=== PATIENT | male | born 1980 | race Caucasian/White ===

== ENCOUNTER 2018-10-10 11:00 | Emergency (ER) | payer OTHER ==
--- NOTE | 2018-10-10 12:46 | EDPHY ---
H & P Time Seen by Provider: 10/10/18 11:29 HPI/ROS: CHIEF COMPLAINT: Chest tightness HISTORY OF PRESENT ILLNESS: Patient is a 38-year-old male who presents emergency department with chest tightness starting at around 10:00 a.m.. The patient states he was in a meeting. He started to feel "fidgety."He then felt mildly diaphoretic and his vision was closing in. He got up and left the meeting. He felt some mild chest tightness. His symptoms have improved at this point. He has no current chest pain. He denies leg pain or swelling. Patient wondered if he was having an anxiety attack. He states he is under significant stress currently. REVIEW OF SYSTEMS: 10 systems were reveiwed and are negative with the exception of the elements mentioned in the history of present illness. Past Medical/Surgical History: Negative Social history: The patient drank wine last evening. He does not smoke. Denies drug use Family history: Hypertension Smoking Status: Never smoked Physical Exam: Vitals noted. Heart rate 119 GENERAL: Anxious appearing, in no acute distress, alert. HEENT: Eyes normal to inspection, normal pharynx, no signs of dehydration. NECK: Normal, supple. RESPIRATORY: Clear to auscultation bilaterally, no rales, rhonchi or wheezing. CVS: Regular rate and rhythm, no rubs, murmurs, or gallops. ABDOMEN: Soft, nontender, nondistended, no organomegaly. BACK: Normal to inspection, no CVA tenderness. SKIN: Normal color, no rash, warm, dry. No pallor. EXTREMITIES: No pedal edema, no calf tenderness, no Homans sign or cords, no joint swelling. NEURO/PSYCH: Alert and oriented, normal mood and affect, normal motor sensory exam. No obvious cranial nerve deficit. Constitutional: Initial Vital Signs Temperature (C) 36.7 C 10/10/18 11:10 Heart Rate 119 H 10/10/18 11:10 Respiratory Rate 18 10/10/18 11:10 Blood Pressure 135/88 H 10/10/18 11:10 O2 Sat (%) 98 10/10/18 11:10 O2 Delivery Mode Room Air Allergies/Adverse Reactions: No Known Allergies Allergy (Unverified 10/10/18 11:10) Home Medications: Medication Instructions Recorded NK [No Known Home Meds] 10/10/18 Medical Decision Making ED Course/Re-evaluation: In the emergency department I discussed possible etiologies with the patient. I answered all his questions. EKG shows mild tachycardia at 103, normal axis, normal intervals]. VPC. There are no ST or T-wave abnormalities. Troponin is negative Differential Diagnosis: My differential includes but is not limited to ACS, acute RI, dissection, aneurysm DVT, anxiety - Data Points Laboratory Results: Laboratory Results 10/10/18 12:30 10/10/18 12:30 10/10/18 10/10/18 10/10/18 12:30 12:30 11:36 WBC 7.68 10^3/uL 10^3/uL (3.80-9.50) RBC 5.18 10^6/uL 10^6/uL (4.40-6.38) Hgb 16.1 g/dL g/dL (13.7-17.5) Hct 46.7 % % (40.0-51.0) MCV 90.2 fL fL (81.5-99.8) MCH 31.1 pg pg (27.9-34.1) MCHC 34.5 g/dL g/dL (32.4-36.7) RDW 12.5 % % (11.5-15.2) Plt Count 188 10^3/uL 10^3/uL (150-400) MPV 10.5 fL fL (8.7-11.7) Neut % (Auto) 77.8 % H % (39.3-74.2) Lymph % (Auto) 12.8 % L % (15.0-45.0) [place] % (Auto) 8.5 % % (4.5-13.0) Eos % (Auto) 0.1 % L % (0.6-7.6) Baso % (Auto) 0.5 % % (0.3-1.7) Nucleat RBC Rel Count 0.0 % % (0.0-0.2) Absolute Neuts (auto) 5.98 10^3/uL 10^3/uL (1.70-6.50) Absolute Lymphs (auto) 0.98 10^3/uL L 10^3/uL (1.00-3.00) Absolute Monos (auto) 0.65 10^3/uL 10^3/uL (0.30-0.80) Absolute Eos (auto) 0.01 10^3/uL L 10^3/uL (0.03-0.40) Absolute Basos (auto) 0.04 10^3/uL 10^3/uL (0.02-0.10) Absolute Nucleated RBC 0.00 10^3/uL 10^3/uL (0-0.01) Immature Gran % 0.3 % % (0.0-1.1) Immature Gran # 0.02 10^3/uL 10^3/uL (0.00-0.10) D-Dimer Sodium 135 mEq/L mEq/L (135-145) Potassium 3.4 mEq/L L mEq/L (3.5-5.2) Chloride 99 mEq/L mEq/L (97-110) Carbon Dioxide 19 mEq/l L mEq/l (22-31) Anion Gap 17 mEq/L H mEq/L (6-14) BUN 8 mg/dL mg/dL (7-23) Creatinine 0.8 mg/dL mg/dL (0.7-1.3) Estimated GFR > 60 Glucose 152 mg/dL H mg/dL (70-100) Calcium 9.3 mg/dL mg/dL (8.5-10.4) POC Troponin I 0.00 ng/mL ng/mL (0.00-0.08) 10/10/18 11:30 WBC RBC Hgb Hct MCV MCH MCHC RDW Plt Count MPV Neut % (Auto) Lymph % (Auto) [place] % (Auto) Eos % (Auto) Baso % (Auto) Nucleat RBC Rel Count Absolute Neuts (auto) Absolute Lymphs (auto) Absolute Monos (auto) Absolute Eos (auto) Absolute Basos (auto) Absolute Nucleated RBC Immature Gran % Immature Gran # D-Dimer < 0.27 ug/mLFEU ug/mLFEU (0.00-0.50) Sodium Potassium Chloride Carbon Dioxide Anion Gap BUN Creatinine Estimated GFR Glucose Calcium POC Troponin I Point of Care Test Results: Chemistry 10/10/18 11:36 POC Troponin I 0.00 ng/mL ng/mL (0.00-0.08) Departure - Departure Disposition: Home, Routine, Self-Care Clinical Impression: Chest pain Qualifiers: Chest pain type: unspecified Qualified Code(s): R07.9 - Chest pain, unspecified Condition: Good Instructions: Chest Pain (ED) Additional Instructions: Return with increasing chest pain, shortness of breath, fever or any other concerns. Referrals: Ursula Saldivar MD [Medical Doctor] - 3-4 days, if not improved
[2018-10-10 12:49] LABS: PLATELET COUNT 188 10^3/uL (150-400)
[2018-10-10 13:56] VITALS: BP 128/81
--- NOTE | 2018-10-10 15:03 | CPEKG ---
Test Reason : OPEN Blood Pressure : / mmHG Vent. Rate : 103 BPM Atrial Rate : 101 BPM P-R Int : 154 ms QRS Dur : 101 ms QT Int : 351 ms P-R-T Axes : 068 077 027 degrees QTc Int : 460 ms Sinus tachycardia Ventricular premature complex Probable left atrial enlargement Confirmed by Marguerite Hogan ([id number] on 10/10/2018 3:03:05 PM Referred By: PHYSICIAN ED Confirmed By:Marguerite Hogan
== END 2018-10-10 13:55 | disposition home or self-care (01) ==
DX: R07.9 Chest pain, unspecified (principal)
CPT/HCPCS: 84484-ER